=== PATIENT | male | born 1955 | race Caucasian/White ===

== ENCOUNTER 2023-08-04 23:47 | Emergency (ER) | payer MEDICARE ==
[~2023-08-04] VITALS: Ht 182.9 cm; Wt 91.8 kg
[2023-08-05] MEDS ORDERED: LISINOPRIL10 MG PO (00:13)
[2023-08-05] MEDS ORDERED: FLOMAX0.4 MG PO (00:13)
[2023-08-05] MEDS ORDERED: ZYLOPRIM 100MG100 MG PO (00:14)
[2023-08-05] MEDS ORDERED: NS 1,000 ML IV SCH ×2 (00:30→02:00)
[2023-08-05] MEDS ORDERED: fentaNYL 100 MCG/2 ML VIAL IV ONE (00:30)
[2023-08-05 00:57] LABS: CARBON DIOXIDE 22 mmol/L (23-31)
[2023-08-05 00:58] LABS: TOTAL BILIRUBIN 1.5 mg/dL (0.2-1.2)
[2023-08-05 00:59] LABS: ALBUMIN 4.2 g/dL (3.4-4.8); CALCIUM 9.6 mg/dL (8.3-10.5); GLUCOSE 190 mg/dL (75-110); SODIUM 142 mmol/L (136-145)
[2023-08-05 01:00] LABS: BASO # 0.01 K/mm3 (0.02-0.10); EOS # 0.02 K/mm3 (0.04-0.40); EOS % 0.2 % (0.0-4.0); HEMATOCRIT 45.8 % (42.0-52.0); HEMOGLOBIN 15.8 g/dL (13.5-18.0); LYMPH# 0.85 K/mm3 (1.50-4.00); MEAN CELL VOLUME 93 fl (78-100); MEAN CORPUSCULAR HEMOGLOBIN 32 pg (27-31); MEAN CORPUSCULAR HGB CONC 35 g/dL (33-37); MONO # 0.94 K/mm3 (0.20-0.80); NEU # 9.44 K/mm3 (1.40-6.50); PLATELET COUNT 142 K/mm3 (130-400); RED BLOOD COUNT 4.95 M/mm3 (4.20-5.60); RED CELL DISTRIBUTION WIDTH 12.5 % (11.5-14.5); WHITE BLOOD COUNT 11.3 K/mm3 (4.8-10.8)
[2023-08-05 01:01] LABS: AST-SGOT 189 U/L (5-34)
[2023-08-05 01:02] LABS: ALT/SGPT 183 U/L (0-55)
[2023-08-05] MEDS ORDERED: Pantoprazole 40 MG in NS 10 ML IV ONE (01:15)
[2023-08-05 01:18] LABS: PH-URINE 5.5 (5.0 - 8.0); URINE APPEARANCE CLEAR (CLEAR); URINE BILIRUBIN NEGATIVE (NEGATIVE); URINE COLOR YELLOW (YELLOW); URINE GLUCOSE NEGATIVE (NEGATIVE); URINE KETONE NEGATIVE (NEGATIVE); URINE NITRATE NEGATIVE (NEGATIVE); URINE PROTEIN(semi-quant) NEGATIVE (NEGATIVE)
[2023-08-05 01:19] LABS: URINE BLOOD NEGATIVE (NEGATIVE); URINE LEUKOCYTE ESTERASE NEGATIVE (NEGATIVE); URINE MUCUS PRESENT (NOT PRESENT)
[2023-08-05 01:20] LABS: TROPONIN-I < 0.030 ng/mL (0.00-0.033)
[2023-08-05] MEDS ORDERED: Iohexol 300 - 100 ML VIAL IV ONE (01:30)
[2023-08-05 02:08] LABS: LIPASE 10518 U/L (8-78)
[2023-08-05 03:05] VITALS: BP 150/93
[2023-08-05] MEDS ORDERED: FENTANYL 50 MCG/ML IV (10:29)
[2023-08-05] MEDS ORDERED: PROTONIX I40 MG/VIAL IV (10:31)
[2023-08-05] MEDS ORDERED: NOVAPLUS ZOSYN50 ML IV (10:31)
== END 2023-08-05 03:05 | disposition other institution (70) ==
LOC: ED 23:47
PROVIDERS: Family Medicine
DX: K85.90 Acute pancreatitis without necrosis or infection, unspecified (principal); K80.20 Calculus of gallbladder without cholecystitis without obstruction; R00.1 Bradycardia, unspecified; I12.9 Hypertensive chronic kidney disease with stage 1 through stage 4 chronic kidney disease, or unspecified chronic kidney disease; N18.30 Chronic kidney disease, stage 3 unspecified
CPT/HCPCS: C9113; J3010; J7030; Q9967

== ENCOUNTER 2023-08-05 02:56 | Inpatient (IN) | payer MEDICARE ==
[~2023-08-05] VITALS: Ht 182.9 cm; Wt 95.0 kg
[~2023-08-05 02:56] MED LIST: FLOMAX0.4 MG PO; LISINOPRIL10 MG PO; ZYLOPRIM 100MG100 MG PO
[2023-08-05] MEDS ORDERED: Piperacillin/Tazobactam Sodium 3.375 GM in NS 100 ML IV SCH (03:15)
[2023-08-05] MEDS ORDERED: fentaNYL 100 MCG/2 ML VIAL IV PRN (03:15)
[2023-08-05] MEDS ORDERED: NS 1,000 ML IV SCH (03:15)
[2023-08-05 03:26] VITALS: BP 150/93
[2023-08-05 05:41] VITALS: BP 126/73
[2023-08-05 08:29] LABS: BASO # 0.01 K/mm3 (0.02-0.10); EOS # 0.01 K/mm3 (0.04-0.40); EOS % 0.1 % (0.0-4.0); HEMATOCRIT 46.7 % (42.0-52.0); LYMPH# 0.77 K/mm3 (1.50-4.00); MEAN CELL VOLUME 94 fl (78-100); MEAN CORPUSCULAR HEMOGLOBIN 32 pg (27-31); MEAN CORPUSCULAR HGB CONC 34 g/dL (33-37); MEAN PLATELET VOLUME 9.5 fl (7.4-10.4); MONO # 0.77 K/mm3 (0.20-0.80); NEU # 9.09 K/mm3 (1.40-6.50); PLATELET COUNT 154 K/mm3 (130-400); RED BLOOD COUNT 4.99 M/mm3 (4.20-5.60); RED CELL DISTRIBUTION WIDTH 12.8 % (11.5-14.5); WHITE BLOOD COUNT 10.7 K/mm3 (4.8-10.8)
[2023-08-05 08:38] LABS: ALBUMIN 4.2 g/dL (3.4-4.8)
[2023-08-05 08:39] LABS: CALCIUM 9.3 mg/dL (8.3-10.5)
[2023-08-05 08:41] LABS: TOTAL PROTEIN 7.1 g/dL (6.2-8.1)
[2023-08-05 08:42] LABS: TOTAL BILIRUBIN 1.4 mg/dL (0.2-1.2)
[2023-08-05 10:08] VITALS: BP 147/89
[2023-08-05] MEDS ORDERED: FENTANYL 50 MCG/ML IV (10:29)
[2023-08-05] MEDS ORDERED: PROTONIX I40 MG/VIAL IV (10:31)
[2023-08-05] MEDS ORDERED: NOVAPLUS ZOSYN50 ML IV (10:31)
[2023-08-05 12:52] VITALS: BP 147/89
[2023-08-06] MEDS ORDERED: Pantoprazole 40 MG in NS 10 ML IV SCH (09:00)
== END 2023-08-05 12:35 | disposition short-term general hospital (02) | DRG 444 ==
LOC: MED/SURG 02:56
PROVIDERS: ADMIT Family Medicine
DX: K80.20 Calculus of gallbladder without cholecystitis without obstruction (principal); K85.90 Acute pancreatitis without necrosis or infection, unspecified; I12.9 Hypertensive chronic kidney disease with stage 1 through stage 4 chronic kidney disease, or unspecified chronic kidney disease; N18.9 Chronic kidney disease, unspecified; R00.1 Bradycardia, unspecified; N40.0 Benign prostatic hyperplasia without lower urinary tract symptoms
CPT/HCPCS: J1650; J2543; J3010; J7030